=== PATIENT | female | born 1970 | race Caucasian/White ===

== ENCOUNTER → 2019-10-04 | Outpatient (CLI) | payer OTHER ==
[2019-10-04 10:05] LABS: CHOLESTEROL 200 MG/DL (< 200); GLUCOSE 89 MG/DL (70-105); HDL CHOLESTEROL 39 MG/DL (40-60); TRIGLYCERIDES 174 MG/DL (<150); VLDL CHOLESTEROL 35 MG/DL (5-40)
== END ==
LOC: LAB 09:28
PROVIDERS: ATTEND Student in an Organized Health Care Education/Training Program
DX: Z01.812 Encounter for preprocedural laboratory examination (principal)
CPT/HCPCS: 36415; 80061; 82947; 83036

== ENCOUNTER → 2020-08-05 | Outpatient (CLI) | payer OTHER ==
--- NOTE | 2020-08-05 13:22 | Diagnostic Imaging Report ---
INDICATION: Routine screening. COMPARISON: No prior studies are available for comparison. This is a baseline study. TECHNIQUE: 2D and 3D bilateral screening mammography was performed with CAD. FINDINGS: Both breasts are heterogeneously dense, limiting the sensitivity of mammography. No mass or malignant appearing microcalcifications are seen. The axillae are unremarkable. IMPRESSION: No mammographic features suspicious for malignancy are identified. ACR BI-RADS Category 1: Negative. Result letter will be mailed to the patient. Note: At least 10% of breast cancer is not imaged by mammography. Dictated by: Dictated on workstation # [id number]
== END ==
LOC: RAD 11:00
PROVIDERS: ATTEND Obstetrics & Gynecology
DX: Z12.31 Encounter for screening mammogram for malignant neoplasm of breast (principal)
CPT/HCPCS: 77063; 77067

== ENCOUNTER → 2021-04-28 | Outpatient (CLI) | payer OTHER ==
[2021-04-28 09:17] LABS: HEMATOCRIT 39 % (35-52); HEMOGLOBIN 12.5 g/dL (11.5-16.0); MEAN CORPUSCULAR HEMOGLOBIN 27 pg (25-34); MEAN CORPUSCULAR HGB CONC 32 g/dL (32-36); MEAN CORPUSCULAR VOLUME 83 fL (80-99); MEAN PLATELET VOLUME 9.5 fL (9.0-12.2); PLATELET COUNT 273 10^3/uL (130-400); WHITE BLOOD COUNT 9.1 10^3/uL (4.3-11.0)
[2021-04-28 09:40] LABS: CHLORIDE 106 MMOL/L (98-107); POTASSIUM 4.3 MMOL/L (3.6-5.0); SODIUM 138 MMOL/L (135-145)
[2021-04-28 09:42] LABS: CALCIUM 8.9 MG/DL (8.5-10.1); TRIGLYCERIDES 174 MG/DL (<150); VLDL CHOLESTEROL 35 MG/DL (5-40)
[2021-04-28 09:43] LABS: GLUCOSE 94 MG/DL (70-105); TOTAL PROTEIN 7.1 GM/DL (6.4-8.2)
[2021-04-28 09:44] LABS: CARBON DIOXIDE 23 MMOL/L (21-32)
[2021-04-28 09:45] LABS: BILIRUBIN,TOTAL 0.6 MG/DL (0.1-1.0)
[2021-04-28 09:46] LABS: ALKALINE PHOSPHATASE 23 U/L (40-136); CREATININE SERUM 0.85 MG/DL (0.60-1.30); GFR ESTIMATED > 60
[2021-04-28 09:47] LABS: CHOLESTEROL 193 MG/DL (< 200)
[2021-04-28 09:48] LABS: BUN/CREATININE RATIO 16
[2021-04-28 09:49] LABS: HDL CHOLESTEROL 36 MG/DL (40-60)
[2021-04-28 09:50] LABS: ALANINE AMINOTRANSFERASE 14 U/L (0-55)
[2021-04-28 10:11] LABS: FREE T4 (FREE THYROXINE) 0.81 NG/DL (0.70-1.48)
== END ==
LOC: LAB 08:56
PROVIDERS: ATTEND Student in an Organized Health Care Education/Training Program
DX: Z01.89 Encounter for other specified special examinations (principal)
CPT/HCPCS: 36415; 80053; 80061; 83036; 84439; 84443; 84480; 85027

== ENCOUNTER → 2021-12-31 | Outpatient (CLI) | payer OTHER | LOC: LAB FS 15:24 | PROVIDERS: ATTEND Student in an Organized Health Care Education/Training Program | DX: Z20.822 Contact with and (suspected) exposure to COVID-19 (principal) | CPT/HCPCS: 87635; 87636 ==

== ENCOUNTER → 2022-03-01 | Outpatient (CLI) | payer OTHER | LOC: LAB FS 07:06 | PROVIDERS: ATTEND Student in an Organized Health Care Education/Training Program | DX: Z20.822 Contact with and (suspected) exposure to COVID-19 (principal) | CPT/HCPCS: 87636 ==